=== PATIENT | female | born 1960 | race Caucasian/White ===

== ENCOUNTER 2017-08-30 12:10 | Emergency (ER) | payer BC, OTHER ==
--- NOTE | 2017-08-30 12:55 | EDM.PDOC ---
ED HPI GENERAL MEDICAL PROBLEM - General Chief Complaint: Lower Extremity Injury/Pain Stated Complaint: ALLOVER PAIN AND SHAKING Time Seen by Provider: 08/30/17 12:54 Source of Information: Reports: Patient History Limitations: Reports: No Limitations - History of Present Illness INITIAL COMMENTS - FREE TEXT/NARRATIVE: 57-year-old female presents to the ED due to severe pain in her right buttock and groin. Patient has cirrhosis of the liver and is terminally jaundice. She reports falling in March last year and injuring her right hip and for apparently a hamstring off of the posterior iliac crest. His took well over a month to slowly get so she could walk on her own volition with the aid of a walker. She was doing quite well up until 2 days ago when she developed sudden onset of worsening of the pain in this area without any recurrent fall. Pain is in the right groin as well as in the right buttock and radiates down the posterior aspect of her right leg. This caused her to have markedly disrupted sleep pattern and at present she aches all over. No noted fever or chills. Onset: Sudden Onset Date: 08/28/17 (Chronic pain right buttock area SI joint area but much worse over the last 48 hours.) Duration: Day(s): Location: Reports: Pelvis (Right buttock and groin.), Lower Extremity, Right ( Right hip groin area.) Quality: Reports: Ache, Burning Severity: Severe Improves with: Reports: Rest Worsens with: Reports: Movement (Requires help standing and getting up off the commode.) Context: Reports: Trauma (Remote trauma with injury to the right hip in March.). Denies: Activity ( She especially needs help getting out of a motor vehicle due to severe pain. She does have a walker at home and her sisters been around to help her out as well.), Exercise, Lifting, Sick Contact, Other Associated Symptoms: Reports: Other ( is chronically ill due to cirrhosis of liver. She is chronically jaundiced. 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) (She can't take aspirin acetaminophen or throat NSAIDs due to severe cirrhosis the liver.) Right Hip Pain Score (Numeric/FACES): 10 - Related Data Allergies Allergy/AdvReac Type Severity Reaction Status Date / Time No Known Allergies Allergy Verified 08/30/17 12:40 Home Meds: Home Meds Ampicillin [Principen] 500 mg PO Q6H 08/30/17 [History] Calcium Carbonate/Vitamin D3 [Calcium 600 + Vit D 400 Tablet] 1 each PO DAILY [History] Ciprofloxacin [IJD: Ciprofloxacin HCl] 500 mg PO DAILY 08/30/17 [History] FLUoxetine HCl [Prozac] 40 mg PO DAILY 08/30/17 [History] HYDROmorphone [Dilaudid] 1 mg PO Q6H PRN #12 tab 08/30/17 [Rx] Insulin Aspart [Novolog] 4 - 15 unit SQ QID 08/30/17 [History] Insulin Detemir [Levemir Flextouch] 20 unit SQ BEDTIME 08/30/17 [History] Lactulose 45 ml PO QID 08/30/17 [History] Lidocaine 5% [Lidoderm 5%] 1 patch TOP DAILY 08/30/17 [History] Magnesium Oxide 400 mg PO DAILY 08/30/17 [History] Metoclopramide HCl [Reglan] 10 mg PO QID 08/30/17 [History] Ondansetron 4 mg PO Q6H PRN 08/30/17 [History] Pantoprazole [ProTONIX] 40 mg PO BID 08/30/17 [History] Rifaximin [Xifaxan] 550 mg PO BID 08/30/17 [History] Zinc Sulfate [Zincate] 220 mg PO DAILY 08/30/17 [History] predniSONE [Deltasone] 20 mg PO ASDIRECTED #18 tablet 08/30/17 [Rx] Past Medical History Gastrointestinal History: Reports: Cirrhosis, Jaundice (Terminal cirrhosis of the liver.) Endocrine/Metabolic History: Reports: Diabetes, Type II - Past Surgical History GI Surgical History: Reports: Cholecystectomy Social & Family History - Tobacco Use Smoking Status *Q: Never Smoker - Caffeine Use Caffeine Use: Reports: None - Recreational Drug Use Recreational Drug Use: No - Living Situation & Occupation Living situation: Reports: Occupation: Disabled Review of Systems - Review of Systems Review Of Systems: See Below Constitutional: Reports: No Symptoms Eyes: Reports: Other (Does have scleral icterus bilaterally.) Mouth/Throat: Reports: Other Respiratory: Reports: Shortness of Breath (Shortness of breath on minimal exertion.) Cardiovascular: Reports: Edema GI/Abdominal: Reports: Abdominal Pain. Denies: Bloody Stool (Some abdominal pain right upper quadrant.), Constipation, Nausea, Vomiting Musculoskeletal: Reports: Other (Severe pain right buttock SI joint distribution in right groin.) Skin: Reports: Pruritis, Other (Generalized pruritus generalized jaundice.) Neurological: Reports: Dizziness, Difficulty Walking (Severe difficulty walking with aid of a walker and sometimes her sister help her so that she doesn't fall) , Weakness. Denies: Headache, Numbness, Syncope, Tingling Psychiatric: Reports: Depression ED EXAM, GENERAL - Physical Exam Exam: See Below Exam Limited By: Other General Appearance: Cachetic (Appears very tired and drowsy. She appears chronically ill. Cachectic in appearance with scleral icterus and obvious jaundice.) Eye Exam: Bilateral Eye: PERRL, Other (Bilateral scleral icterus.) Throat/Mouth: Other (Dentition is in very poor condition.). No: Normal Teeth Head: Atraumatic, Normocephalic Neck: Normal Inspection Respiratory/Chest: Lungs Clear, Normal Breath Sounds, No Accessory Muscle Use Cardiovascular: Normal Peripheral Pulses, No Gallop, No Murmur, No Rub, Tachycardia (Resting tachycardia of 1 10/m.) Peripheral Pulses: 1+: Posterior Tibial (L), Posterior Tibial (R), Dorsalis Pedis (L), Dorsalis Pedis (R) GI/Abdominal: Tender (Right upper quadrant of the abdomen and distal based of her liver. Abdomen is distended due to ascites.), Other Back Exam: Other (Some pain at L5-S1 facet joints bilaterally worse on the right as compared to the left marked severe pain on palpation of the superior two thirds of the right sacroiliac joint.) Extremities: Other (Examination of her extremities shows generalized muscle atrophy. I'm able to flex the left hip and internally actually rotated without making any worsening of the pain on the right side. Similarly I was able to lift the right leg and internally externally rotated with only minimal discomfort on internal rotation. Most the pain appears to be coming from the sacroiliac joint. There is no pain on palpation of the greater trochanteric versus bilaterally.) Neurological: Alert, Oriented, CN II-XII Intact, Normal Cognition, Other ( Lethargic.) Psychiatric: Anxious Skin Exam: Warm, Dry, Jaundice (Diffusely jaundiced.) Course - Vital Signs Last Recorded V/S: Last Vital Signs Temp 37.5 C 08/30/17 12:38 Pulse 109 H 08/30/17 12:38 Resp 16 08/30/17 12:38 BP 154/75 H 08/30/17 12:38 Pulse Ox 100 08/30/17 12:38 - Orders/Labs/Meds Orders: Active Orders 24 hr Category Date Time Status Pelvis 1V or 2V [CR] Stat Exams 08/30/17 13:01 Taken Meds: Medications Discontinued Medications Generic Name Dose Route Start Last Admin Trade Name Santos PRN Reason Stop Dose Admin Hydromorphone HCl 1 mg 08/30/17 13:01 Dilaudid IM 08/30/17 13:02 ONETIME ONE Hydromorphone HCl 1 mg 08/30/17 13:06 08/30/17 13:18 Dilaudid IM 08/30/17 13:07 1 mg ONETIME ONE Administration Metoclopramide HCl 5 mg 08/30/17 13:01 08/30/17 13:18 Reglan IM 08/30/17 13:02 5 mg ONETIME ONE Administration - Radiology Interpretation Free Text/Narrative:: 57-year-old female with known terminal cirrhosis of the liver presents to the ED due to severe pain in her right buttock and hip area. She fell in March and injured this area and apparently it was at that time did not reveal any fractures. She was treated with a walker and time and she slowly got better. With no injuries reoccurring she developed acute severe pain in the right buttock and hip area 2 days ago to the point that she can barely get up from a seated position. She requires help to get up and she requires a lot of help to getting out of the vehicle. On examination she appears to have a severe right- sided sacroiliitis. He does not take NSAIDs or acetaminophen due to severe cirrhosis of the liver. Plan I will give her a shot of Dilaudid 1 mg with Reglan 5 mg IM for acute pain relief. X-ray of her pelvis will be obtained so I can see both hips and SI joints. - Re-Assessments/Exams Free Text/Narrative Re-Assessment/Exam: 08/30/17 13:52 x-ray of the pelvis including both hips is within normal limits there is no significant arthritis in her hips at all. Only a deviation of the coccyx to the right side. I have no x-rays to compare to to indicate whether or not this occurred from her fall fractured her tailbone. Joint appears to be within normal limits. Plan will be to treat her with pain medication as needed Dilaudid 1 mg tablet every 6 hours as needed for the next few days. I'm going to start her on prednisone 20 mg twice daily for 6 days then 1 tablet in the morning only for another 6 days to reduce the inflammation in the SI joint. She cannot take anti-inflammatories. Departure - Departure Time of Disposition: 13:53 Disposition: Home, Self-Care 01 Condition: Fair Clinical Impression: Sacroiliitis - Discharge Information Prescriptions: HYDROmorphone [Dilaudid] 1 mg PO Q6H PRN #12 tab PRN Reason: Pain relief predniSONE [Deltasone] 20 mg PO ASDIRECTED #18 tablet Referrals: Alyssa Lloyd MD [Primary Care Provider] - Forms: ED Department Discharge Additional Instructions: Evaluation the emergency room today in regards to severe pain right buttock and hip area that started 2 days ago. Examination reveals marked inflammation coming from the right sacroiliac joint. X-ray of the pelvis was performed and reveals that there is no arthritis in your hip joints. The true hips are within normal limits there are no fractures in the pelvis. It is noted that you have a deviated tailbone to the right side which indicates a previous fracture of the tailbone or coccyx. I have no x-rays to compare to 2 indicating whether or not this occurred from her fall in March. At any rate treatment is to be anti- inflammatory Deltasone 20 mg in the morning and one with supper daily for 6 days then one of the morning only for another 6 days. Of note the steroid is to reduce pain and inflammation in the SI joint. To take with cirrhosis of the liver. It may elevate her blood sugars transiently while on the medication but they will come back to normal after you're done the medication. Pain relief is to be Dilaudid 2 mg tablets one half tablet every 6 hours needed for pain relief. The Deltasone is usually starts to work fairly well in 2 days time. For this will reduce her pain substantially. If not markedly improved in 10-12 days time than the SI joint could be injected with steroid to improve your pain. Follow-up with your personal doctor in this regard. - My Orders Last 24 Hours: My Active Orders 08/30/17 13:01 Pelvis 1V or 2V [CR] Stat - Assessment/Plan Last 24 Hours: My Active Orders 08/30/17 13:01 Pelvis 1V or 2V [CR] Stat
[2017-08-30] MEDS ORDERED: Metoclopramide 10 MG/2 ML SDV IM ONE (13:01)
[2017-08-30] MEDS ORDERED: HYDROmorphone 1 MG/ML Syringe IM ONE (13:01)
[2017-08-30] MEDS ORDERED: HYDROmorphone 0.5 MG/0.5 ML SYRINGE IM ONE (13:06)
--- NOTE | 2017-08-31 05:44 | CR ---
Pelvis: AP view of the pelvis was obtained. Joint spaces within both hips are maintained. Sacroiliac joints appear within normal limits. No fracture or other bony abnormality is seen. Phleboliths are seen within the pelvis. Vascular calcification is seen. Impression: 1. Incidental findings. Nothing acute is seen. Diagnostic code #2
== END 2017-08-30 14:25 | disposition home or self-care (01) ==
LOC: JD.ED 12:10
DX: M46.1 Sacroiliitis, not elsewhere classified (principal); E11.9 Type 2 diabetes mellitus without complications; Z79.899 Other long term (current) drug therapy; Z79.4 Long term (current) use of insulin
CPT/HCPCS: 72170; 96372; 99284; J1170; J2765; 99283

== ENCOUNTER 2017-09-06 23:27 | Emergency (ER) | payer OTHER ==
[2017-09-07] MEDS ORDERED: Ondansetron 4 MG/2 ML SDV IVPUSH ONE (00:28)
[2017-09-07] MEDS ORDERED: HYDROmorphone 0.5 MG/0.5 ML SYRINGE IVPUSH STA (00:29)
[2017-09-07] MEDS ORDERED: Sodium Chloride 0.9% 1,000 ML IV SCH (00:30)
--- NOTE | 2017-09-07 01:35 | EDM.PDOC ---
ED HPI GENERAL MEDICAL PROBLEM - General Chief Complaint: Abdominal Pain Stated Complaint: SOB AND CHEST PAIN VOMMITING GASTRO TESTING TODAY Time Seen by Provider: 09/06/17 23:41 Source of Information: Reports: Patient, Family (Sister) History Limitations: Reports: Physical Impairment (Majority of history provided by the patient's sister) - History of Present Illness INITIAL COMMENTS - FREE TEXT/NARRATIVE: The patient has a history of alcoholic cirrhosis, diagnosed about a year ago, according to the patient's sister. Medical records indicate that the patient was hospitalized at [facility] between 08/15/2017 and 08/22/2017, apparently for cirrhosis, although exactly what was done is not clear. The patient is currently on ciprofloxacin and oral ampicillin, likely prescribed from that visit. The patient was then seen in this ED on 08/30/2017 for buttock pain, after falling. She was found to have right sacroiliitis and a (likely) old coccygeal fracture. The patient underwent a MRI of her abdomen, as well as a gastric emptying study , at [facility], earlier today. She states that on her drive home around 18:00 tonight, she developed nausea, vomiting, watery diarrhea, and lower abdominal pain. No fever, and no urinary symptoms. The patient states that she has Zofran, but was unable to keep it, or any of her other medications, down because of her vomiting. The patient had similar symptoms in March 2017. She was found to have ascites and peritonitis. Although the patient has recently been at [facility], the majority of her prior GI evaluation and treatment has been at [facility]. The patient's Wind Turbine Machinist is at the [facility]. He acts as her PCP. Lower Abdomen Pain Score (Numeric/FACES): 10 - Related Data Allergies Allergy/AdvReac Type Severity Reaction Status Date / Time No Known Allergies Allergy Verified 09/06/17 23:42 Home Meds: Home Meds Ampicillin [Principen] 500 mg PO Q6H 08/30/17 [History] Calcium Carbonate/Vitamin D3 [Calcium 600 + Vit D 400 Tablet] 1 each PO DAILY [History] Ciprofloxacin [IJD: Ciprofloxacin HCl] 500 mg PO DAILY 08/30/17 [History] FLUoxetine HCl [Prozac] 40 mg PO DAILY 08/30/17 [History] HYDROmorphone [Dilaudid] 1 mg PO Q6H PRN #12 tab 08/30/17 [Rx] Insulin Aspart [Novolog] 4 - 15 unit SQ QID 08/30/17 [History] Insulin Detemir [Levemir Flextouch] 20 unit SQ BEDTIME 08/30/17 [History] Lactulose 45 ml PO QID 08/30/17 [History] Lidocaine 5% [Lidoderm 5%] 1 patch TOP DAILY 08/30/17 [History] Magnesium Oxide 400 mg PO DAILY 08/30/17 [History] Metoclopramide HCl [Reglan] 10 mg PO QID 08/30/17 [History] Ondansetron 4 mg PO Q6H PRN 08/30/17 [History] Pantoprazole [ProTONIX] 40 mg PO BID 08/30/17 [History] Rifaximin [Xifaxan] 550 mg PO BID 08/30/17 [History] Zinc Sulfate [Zincate] 220 mg PO DAILY 08/30/17 [History] predniSONE [Deltasone] 20 mg PO ASDIRECTED #18 tablet 08/30/17 [Rx] Past Medical History Gastrointestinal History: Reports: Cirrhosis (alcoholic), Jaundice, Other (See Below) (History of portal hypertension and ascites) Neurological History: Reports: Other (See Below) (History of hepatic encephalopathy) Psychiatric History: Reports: Addiction (alcohol), Depression Endocrine/Metabolic History: Reports: Diabetes, Type II - Past Surgical History GI Surgical History: Reports: Cholecystectomy Musculoskeletal Surgical History: Reports: ORIF (right wrist) Social & Family History - Family History Family Medical History: Noncontributory - Tobacco Use Smoking Status *Q: Never Smoker Second Hand Smoke Exposure: No - Caffeine Use Caffeine Use: Reports: Coffee - Alcohol Use Alcohol Use History: Yes Date/Time of Last Drink Comment: Last drink in Jun 2017 - Recreational Drug Use Recreational Drug Use: Yes Drug Use in Last 12 Months: No Recreational Drug Type: Reports: Marijuana/Hashish (on occasion) - Living Situation & Occupation Living situation: Reports: , with Family (Sister) Occupation: Disabled ED ROS GENERAL - Review of Systems Review Of Systems: ROS reveals no pertinent complaints other than HPI. ED EXAM, GI/ABD - Physical Exam Exam: See Below Exam Limited By: No Limitations General Appearance: Alert, WD/WN, Mild Distress Eyes: Bilateral: Normal Appearance (Scleral icterus), EOMI Ears: Normal External Exam, Hearing Grossly Normal Nose: Normal Inspection, No Blood Throat/Mouth: Normal Inspection, Normal Lips, Normal Voice, No Airway Compromise Head: Atraumatic, Normocephalic Neck: Normal Inspection, Full Range of Motion Respiratory/Chest: No Respiratory Distress, Lungs Clear, Normal Breath Sounds, No Accessory Muscle Use Cardiovascular: Normal Peripheral Pulses, Regular Rate, Rhythm, No Gallop, No JVD, No Rub, Systolic Murmur (Flow murmur, heard across precordium) GI/Abdominal Exam: Normal Bowel Sounds, Soft, Non-Tender (including the lower abdomen), No Organomegaly, No Distention, No Abnormal Bruit, No Mass (Female) Exam: Deferred Rectal (Female) Exam: Deferred Back Exam: Normal Inspection, Full Range of Motion, NT Extremities: Normal Inspection, Normal Range of Motion, Normal Capillary Refill , Other (3+ pretibial pitting edema bilaterally) Neurological: Alert, Oriented, Normal Cognition, No Motor/Sensory Deficits Skin Exam: Warm, Dry, Intact, Normal Color, No Rash Course - Vital Signs Last Recorded V/S: Last Vital Signs Temp 37.1 C 09/06/17 23:42 Pulse 101 H 09/06/17 23:42 Resp 22 H 09/06/17 23:42 BP 171/82 H 09/06/17 23:42 Pulse Ox 100 09/06/17 23:42 - Orders/Labs/Meds Orders: Active Orders 24 hr Category Date Time Status CULTURE STOOL + SHIGATOX [RM] Stat Lab 09/07/17 00:55 Ordered NOROVIRUS, RT-PCR Stat Lab 09/07/17 00:55 Received ROTAVIRUS DIRECT ANTIGEN STOOL [OP] Stat Lab 09/07/17 00:55 COMP UA W/MICROSCOPIC [URIN] Stat Lab 09/07/17 01:50 Ordered WBC, STOOL [OP] Stat Lab 09/07/17 00:55 COMP Sodium Chloride 0.9% [Normal Saline] 1,000 ml Med 09/07/17 00:30 Active IV ASDIRECTED Medication Orders Sodium Chloride (Normal Saline) 1,000 mls @ 100 mls/hr IV ASDIRECTED GUILHERME Last Admin: 09/07/17 00:55 Dose: 100 mls/hr Labs: Laboratory Tests 09/07/17 09/07/17 09/07/17 Range/Units 00:32 00:32 00:55 WBC 3.12 L (3.98-10.04) K/mm3 RBC 3.29 L (3.98-5.22) M/mm3 Hgb 9.7 L (11.2-15.7) gm/L Hct 28.0 L (34.1-44.9) % MCV 85.1 (79.4-94.8) fl MCH 29.5 (25.6-32.2) pg MCHC 34.6 (32.2-35.5) g/dl RDW Std Deviation 46.1 (36.4-46.3) fL Plt Count 57 L (182-369) K/mm3 MPV 9.6 (9.4-12.3) fl Neutrophils % (Manual) 83 H (40-60) % Band Neutrophils % 0 (0-10) % Lymphocytes % (Manual) 8 L (20-40) % Atypical Lymphs % 0 % Monocytes % (Manual) 9 (2-10) % Eosinophils % (Manual) 0 L (0.7-5.8) % Basophils % (Manual) 0 L (0.1-1.2) Platelet Estimate Marked dec Plt Morphology Comment Normal Poikilocytosis 2+ moderate Anisocytosis 1+ slight Microcytosis 1+ slight Macrocytosis 1+ slight Tear Drop Cells 1+ slight Ovalocytes 1+ slight Schistocytes 1+ slight RBC Morph Comment Abnormal Sodium 126 L (136-145) mEq/L Potassium 3.9 (3.5-5.1) mEq/L Chloride 90 L (98-107) mEq/L Carbon Dioxide 19 L (21-32) mEq/L Anion Gap 20.9 H (5-15) BUN 15 (7-18) mg/dL Creatinine 1.5 H (0.55-1.02) mg/dL Est Cr Clr Drug Dosing 30.08 mL/min Estimated GFR (MDRD) 36 (>60) mL/min BUN/Creatinine Ratio 10.0 L (14-18) Glucose 363 H (74-106) mg/dL Calcium 9.5 (8.5-10.1) mg/dL Total Bilirubin 6.8 H (0.2-1.0) mg/dL AST 57 H (15-37) U/L ALT 48 (14-59) U/L Alkaline Phosphatase 109 (46-116) U/L Total Protein 7.0 (6.4-8.2) g/dl Albumin 3.7 (3.4-5.0) g/dl Globulin 3.3 gm/dL Albumin/Globulin Ratio 1.1 (1-2) Lipase 425 H (73-393) U/L Urine Color (Yellow) Urine Appearance (Clear) Urine pH (5.0-8.0) Ur Specific [place] (1.005-1.030) Urine Protein (Negative) Urine Glucose (UA) (Negative) Urine Ketones (Negative) Urine Occult Blood (Negative) Urine Nitrite (Negative) Urine Bilirubin (Negative) Urine Urobilinogen (0.2-1.0) Ur Leukocyte Esterase (Negative) Urine RBC (0-5) /hpf Urine WBC (0-5) /hpf Ur Epithelial Cells (0-5) /hpf Urine Bacteria (FEW) /hpf Hyaline Casts (0-5) /lpf Waxy Casts (0-5) /lpf Urine Mucus (FEW) /hpf C.difficile [id number] Presumptive negative C. difficile Tox (PCR) Negative 09/07/17 Range/Units 01:50 WBC (3.98-10.04) K/mm3 RBC (3.98-5.22) M/mm3 Hgb (11.2-15.7) gm/L Hct (34.1-44.9) % MCV (79.4-94.8) fl MCH (25.6-32.2) pg MCHC (32.2-35.5) g/dl RDW Std Deviation (36.4-46.3) fL Plt Count (182-369) K/mm3 MPV (9.4-12.3) fl Neutrophils % (Manual) (40-60) % Band Neutrophils % (0-10) % Lymphocytes % (Manual) (20-40) % Atypical Lymphs % % Monocytes % (Manual) (2-10) % Eosinophils % (Manual) (0.7-5.8) % Basophils % (Manual) (0.1-1.2) Platelet Estimate Plt Morphology Comment Poikilocytosis Anisocytosis Microcytosis Macrocytosis Tear Drop Cells Ovalocytes Schistocytes RBC Morph Comment Sodium (136-145) mEq/L Potassium (3.5-5.1) mEq/L Chloride (98-107) mEq/L Carbon Dioxide (21-32) mEq/L Anion Gap (5-15) BUN (7-18) mg/dL Creatinine (0.55-1.02) mg/dL Est Cr Clr Drug Dosing mL/min Estimated GFR (MDRD) (>60) mL/min BUN/Creatinine Ratio (14-18) Glucose (74-106) mg/dL Calcium (8.5-10.1) mg/dL Total Bilirubin (0.2-1.0) mg/dL AST (15-37) U/L ALT (14-59) U/L Alkaline Phosphatase (46-116) U/L Total Protein (6.4-8.2) g/dl Albumin (3.4-5.0) g/dl Globulin gm/dL Albumin/Globulin Ratio (1-2) Lipase (73-393) U/L Urine Color Yellow (Yellow) Urine Appearance Clear (Clear) Urine pH 7.0 (5.0-8.0) Ur Specific [place] 1.015 (1.005-1.030) Urine Protein Negative (Negative) Urine Glucose (UA) 2+ H (Negative) Urine Ketones Negative (Negative) Urine Occult Blood Trace-intact H (Negative) Urine Nitrite Negative (Negative) Urine Bilirubin Negative (Negative) Urine Urobilinogen 0.2 (0.2-1.0) Ur Leukocyte Esterase Negative (Negative) Urine RBC 0-5 (0-5) /hpf Urine WBC 0-5 (0-5) /hpf Ur Epithelial Cells 0-5 (0-5) /hpf Urine Bacteria Not seen (FEW) /hpf Hyaline Casts 0-5 (0-5) /lpf Waxy Casts 0-5 (0-5) /lpf Urine Mucus Not seen (FEW) /hpf C.difficile [id number] C. difficile Tox (PCR) Meds: Medications Generic Name Dose Route Start Last Admin Trade Name Freq PRN Reason Stop Dose Admin Sodium Chloride 1,000 mls @ 100 mls/hr 09/07/17 00:30 09/07/17 00:55 Normal Saline IV 100 mls/hr ASDIRECTED GUILHERME Administration Discontinued Medications Generic Name Dose Route Start Last Admin Trade Name Freq PRN Reason Stop Dose Admin Hydromorphone HCl 1 mg 09/07/17 00:29 09/07/17 00:42 Dilaudid IVPUSH 09/07/17 00:30 1 mg ONETIME STA Administration Insulin Human Regular 10 unit 09/07/17 01:55 09/07/17 02:00 Humulin R SUBCUT 09/07/17 01:56 10 units ONETIME STA Administration Ketorolac Tromethamine 30 mg 09/07/17 01:54 09/07/17 02:01 Toradol IVPUSH 09/07/17 01:55 30 mg ONETIME STA Administration Ondansetron HCl 4 mg 09/07/17 00:28 09/07/17 00:44 Zofran IVPUSH 09/07/17 00:29 4 mg ONETIME ONE Administration - Re-Assessments/Exams Free Text/Narrative Re-Assessment/Exam: 09/07/17 01:34 The patient's CBC reveals pancytopenia, with a WBC of 3.12, H/H of 9.7/28.0, and platelets of 57,000. The patient CMP is remarkable for sodium of 126, which corrects to 129, given hyperglycemia of 363. Her bicarbonate is depressed at 19, with an anion gap of 20.9. Her BUN/Cr is 15/1.5. Her total bilirubin is elevated at 6.8. The patient's lipase is modestly elevated at 425. The only labs we have to compare are from 2013. 09/07/17 04:02 Case discussed with [facility] One Call at 03:35. Case then discussed with Dr. Munoz, [facility] [employer]urbine Machinist on-call, at 03:39. He feels that the pancytopenia is normal for a patient with cirrhosis. Most of the chemistry abnormalities are also common with cirrhosis, although he did not have access to the patient's prior labs for comparison. Dr. Robertson, [facility] Hospitalist, was then brought into the conversation at 03:52. He was able to review the patient's prior labs and found that the lab abnormalities presents today are essentially unchanged from prior lab abnormalities, with the exception that the total bilirubin is higher than usual. Dr. Munoz did not feel that the patient required transfer. He felt that the patient could be managed at this facility for gastroenteritis, with IV fluid and Zofran, although he advised against excess loperamide, as he did not want the patient to become constipated. If any questions or concerns, he could be contacted. Case then discussed with Dr. Morley at 03:59. He accepted the patient for admission. 09/07/17 04:11 The above was discussed with the patient, however, she states that she is feeling much better, and would like to go home. She states that she has an appointment to see her own Wind Turbine Machinist in [place] at 1:45 this afternoon. Departure - Departure Time of Disposition: 04:12 Disposition: Home, Self-Care 01 Condition: Fair Clinical Impression: Gastroenteritis, Alcoholic cirrhosis, Pancytopenia, Hyperglycemia due to type 2 diabetes mellitus - Discharge Information Referrals: PCP,Not In Area [Primary Care Provider] - Forms: ED Department Discharge Additional Instructions: You were seen in the emergency room for nausea, vomiting, watery diarrhea, and lower abdominal pain. Workup in the ER included blood work, a urinalysis, and several stool studies. Your workup found many laboratory abnormalities, but when compared to prior labs , they were normal for you. Vomiting and diarrhea = gastroenteritis. The cause of your gastroenteritis is not entirely clear, but is likely viral. You were offered admission to the hospital, that you declined. Continue to take your usual home medications as prescribed. Follow-up with your Wind Turbine Machinist in [place] at your previously scheduled appointment at 1:45 this afternoon. If any other problems, please do not hesitate to return to the ER. - My Orders Last 24 Hours: My Active Orders 09/07/17 00:30 Sodium Chloride 0.9% [Normal Saline] 1,000 ml IV ASDIRECTED 09/07/17 00:55 CULTURE STOOL + SHIGATOX [RM] Stat NOROVIRUS, RT-PCR Stat ROTAVIRUS DIRECT ANTIGEN STOOL [OP] Stat WBC, STOOL [OP] Stat 09/07/17 01:50 UA W/MICROSCOPIC [URIN] Stat - Assessment/Plan Last 24 Hours: My Active Orders 09/07/17 00:30 Sodium Chloride 0.9% [Normal Saline] 1,000 ml IV ASDIRECTED 09/07/17 00:55 CULTURE STOOL + SHIGATOX [RM] Stat NOROVIRUS, RT-PCR Stat ROTAVIRUS DIRECT ANTIGEN STOOL [OP] Stat WBC, STOOL [OP] Stat 09/07/17 01:50 UA W/MICROSCOPIC [URIN] Stat
[2017-09-07] MEDS ORDERED: Ketorolac 30 MG/ML SDV IVPUSH STA (01:54)
[2017-09-07] MEDS ORDERED: Insulin Regular, Human 100 Units/ML 3 ML Vial SUBCUT STA (01:55)
== END 2017-09-07 04:30 | disposition home or self-care (01) ==
LOC: JD.ED 23:27
DX: K70.30 Alcoholic cirrhosis of liver without ascites (principal); K52.9 Noninfective gastroenteritis and colitis, unspecified; D61.818 Other pancytopenia; E11.65 Type 2 diabetes mellitus with hyperglycemia; Z79.899 Other long term (current) drug therapy; Z79.4 Long term (current) use of insulin
CPT/HCPCS: 36415; 80053; 81001; 83690; 85025; 87046; 87425; 87493; 87798; 89055; 96361; 96372; 96374; 96375; 99284; J1170; J1815; J1885; J2405; J7040

== ENCOUNTER 2017-09-07 16:03 | Emergency (ER) | payer MEDICAID, OTHER ==
[2017-09-07] MEDS ORDERED: Sodium Chloride 0.9% 10 ML Syringe FLUSH PRN (16:32)
[2017-09-07] MEDS ORDERED: Metoclopramide 10 MG/2 ML SDV IVPUSH ONE (16:32)
[2017-09-07] MEDS ORDERED: Sodium Chloride 0.9% 1,000 ML IV STA (16:32)
[2017-09-07] MEDS ORDERED: fentaNYL 100 MCG/2 ML SDV IVPUSH ONE (16:34)
--- NOTE | 2017-09-07 17:30 | EDM.PDOC ---
ED HPI GENERAL MEDICAL PROBLEM - General Chief Complaint: Abdominal Pain Stated Complaint: VOMITING AND DIARRHEA NOT BETTER Time Seen by Provider: 09/07/17 16:16 Source of Information: Reports: Patient History Limitations: Reports: No Limitations - History of Present Illness INITIAL COMMENTS - FREE TEXT/NARRATIVE: The patient presents with nausea, vomiting, diarrhea and lower abdominal pain. This started last night about 6pm. She has a history of alcoholic cirrhosis of the liver with ascities. She was diagnosed 1 year ago. She was hospitalized at [facility] last month from 08/15/17 to 08/22/17. She is currently on cipro and ampicillin. She was seen here for buttock pain from a fall on 08/30/17. 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 The patient had an MRI of her abdomen as well as gastric emptying study at [facility] yesterday. On the way home she developed the symptoms. She had no fever, dysuria, chest pain, or shortness of breath. She tried zofran but that did not help. She was seen here in the ER early this morning. She was found to have pancytopenea, low sodium, elevated glucose and elevated lipase. Our provider call Dr Munoz the GI specialist legal paraprofessional at [facility] and the hospitalist. They were not concerned about her labs and recommend she stay here for treatment. Dr oMrley our hospitalist was contacted and he accepted the patient but she wanted to go home. She had a 1:45pm appointment with her GI doctor today. She could not go. She was to sick with nausea, vomiting, diarrhea and abdominal pain. Onset: Gradual Duration: Day(s): (Yesterday at 6pm) Location: Reports: Abdomen Quality: Reports: Sharp Severity: Moderate Improves with: Reports: None Worsens with: Reports: None Associated Symptoms: Reports: Nausea/Vomiting. Denies: Chest Pain, Cough, Fever /Chills, Headaches, Shortness of Breath Bilateral Lower Abdomen Pain Score (Numeric/FACES): 8 - Related Data Allergies Allergy/AdvReac Type Severity Reaction Status Date / Time No Known Allergies Allergy Verified 09/07/17 16:11 Home Meds: Home Meds Ampicillin [Principen] 500 mg PO Q6H 08/30/17 [History] Calcium Carbonate/Vitamin D3 [Calcium 600 + Vit D 400 Tablet] 1 each PO DAILY [History] Ciprofloxacin [IJD: Ciprofloxacin HCl] 500 mg PO DAILY 08/30/17 [History] FLUoxetine HCl [Prozac] 40 mg PO DAILY 08/30/17 [History] HYDROmorphone [Dilaudid] 1 mg PO Q6H PRN #12 tab 08/30/17 [Rx] Insulin Aspart [Novolog] 4 - 15 unit SQ QID 08/30/17 [History] Insulin Detemir [Levemir Flextouch] 20 unit SQ BEDTIME 08/30/17 [History] Lactulose 45 ml PO QID 08/30/17 [History] Lidocaine 5% [Lidoderm 5%] 1 patch TOP DAILY 08/30/17 [History] Magnesium Oxide 400 mg PO DAILY 08/30/17 [History] Metoclopramide HCl [Reglan] 10 mg PO QID 08/30/17 [History] Ondansetron 4 mg PO Q6H PRN 08/30/17 [History] Pantoprazole [ProTONIX] 40 mg PO BID 08/30/17 [History] Rifaximin [Xifaxan] 550 mg PO BID 08/30/17 [History] Zinc Sulfate [Zincate] 220 mg PO DAILY 08/30/17 [History] predniSONE [Deltasone] 20 mg PO ASDIRECTED #18 tablet 08/30/17 [Rx] Past Medical History Gastrointestinal History: Reports: Cirrhosis, Jaundice, Other (See Below) Neurological History: Reports: Other (See Below) (History of hepatic encephalopathy) Other Neuro History: hepatic encephalopathy Psychiatric History: Reports: Addiction, Depression Endocrine/Metabolic History: Reports: Diabetes, Type II - Past Surgical History GI Surgical History: Reports: Cholecystectomy Musculoskeletal Surgical History: Reports: ORIF Social & Family History - Family History Family Medical History: Noncontributory - Tobacco Use Smoking Status *Q: Never Smoker Second Hand Smoke Exposure: No - Caffeine Use Caffeine Use: Reports: Coffee - Recreational Drug Use Recreational Drug Use: Yes Drug Use in Last 12 Months: No Recreational Drug Type: Reports: Marijuana/Hashish (on occasion) - Living Situation & Occupation Living situation: Reports: , with Family (Sister) Occupation: Disabled ED ROS GENERAL - Review of Systems Review Of Systems: See Below Constitutional: Reports: No Symptoms HEENT: Reports: No Symptoms Respiratory: Reports: No Symptoms Cardiovascular: Reports: No Symptoms Endocrine: Reports: No Symptoms GI/Abdominal: Reports: Abdominal Pain, Diarrhea, Nausea, Vomiting : Reports: No Symptoms Musculoskeletal: Reports: No Symptoms Skin: Reports: No Symptoms Neurological: Reports: No Symptoms ED EXAM, GI/ABD - Physical Exam Exam: See Below Exam Limited By: No Limitations General Appearance: Alert, No Apparent Distress Eyes: Bilateral: Normal Appearance (Scleral ictirus) Ears: Normal External Exam Nose: Normal Inspection Head: Atraumatic, Normocephalic Neck: Normal Inspection Respiratory/Chest: No Respiratory Distress, Lungs Clear, Normal Breath Sounds Cardiovascular: Regular Rate, Rhythm, No Edema, No Murmur GI/Abdominal Exam: Soft, No Organomegaly, No Mass, Tender (moderate tenderness to the lower abdomen) Back Exam: Normal Inspection Extremities: Normal Inspection Course - Vital Signs Last Recorded V/S: Last Vital Signs Temp 98.7 F 09/07/17 16:09 Pulse 106 H 09/07/17 16:09 Resp 20 09/07/17 16:09 BP 149/71 H 09/07/17 16:09 Pulse Ox 99 09/07/17 16:09 - Orders/Labs/Meds Orders: Active Orders 24 hr Category Date Time Status Peripheral IV Care [RC] . DIRECTED Care 09/07/17 16:32 Active UA W/MICROSCOPIC [URIN] Stat Lab 09/07/17 16:32 Ordered Ertapenem [INVanz] Med 09/07/17 18:55 Once 1 gm IVPUSH ONETIME ONE Sodium Chloride 0.9% [Normal Saline] 1,000 ml Med 09/07/17 18:30 Active IV ASDIRECTED Sodium Chloride 0.9% [Saline Flush] Med 09/07/17 16:32 Active 10 ml FLUSH ASDIRECTED PRN ED Antiemetic Medication Reflex [OM.PC] Stat Oth 09/07/17 16:32 Ordered Peripheral IV Insertion Adult [OM.PC] Stat Oth 09/07/17 16:32 Ordered Medication Orders Sodium Chloride (Normal Saline) 1,000 mls @ 150 mls/hr IV ASDIRECTED GUILHERME Last Admin: 09/07/17 18:37 Dose: 150 mls/hr Sodium Chloride (Saline Flush) 10 ml FLUSH ASDIRECTED PRN PRN Reason: Keep Vein Open Last Admin: 09/07/17 16:52 Dose: 10 ml Labs: Laboratory Tests 09/07/17 09/07/17 Range/Units 16:50 16:50 WBC 3.39 L (3.98-10.04) K/mm3 RBC 3.22 L (3.98-5.22) M/mm3 Hgb 9.4 L (11.2-15.7) gm/L Hct 27.7 L (34.1-44.9) % MCV 86.0 (79.4-94.8) fl MCH 29.2 (25.6-32.2) pg MCHC 33.9 (32.2-35.5) g/dl RDW Std Deviation 48.8 H (36.4-46.3) fL Plt Count 48 L (182-369) K/mm3 MPV 8.6 L (9.4-12.3) fl Neut % (Auto) 74.1 H (34.0-71.1) % Lymph % (Auto) 9.7 L (19.3-51.7) % [place] % (Auto) 15.3 H (4.7-12.5) % Eos % (Auto) 0.6 L (0.7-5.8) Baso % (Auto) 0.0 L (0.1-1.2) % Neut # (Auto) 2.51 (1.56-6.13) K/mm3 Lymph # (Auto) 0.33 L (1.18-3.74) K/mm3 [place] # (Auto) 0.52 H (0.24-0.36) K/mm3 Eos # (Auto) 0.02 L (0.04-0.36) K/mm3 Baso # (Auto) 0.00 L (0.01-0.08) K/mm3 Manual Slide Review Abnormal smear Sodium 128 L (136-145) mEq/L Potassium 3.7 (3.5-5.1) mEq/L Chloride 93 L (98-107) mEq/L Carbon Dioxide 25 (21-32) mEq/L Anion Gap 13.7 (5-15) BUN 15 (7-18) mg/dL Creatinine 1.1 H (0.55-1.02) mg/dL Est Cr Clr Drug Dosing 41.02 mL/min Estimated GFR (MDRD) 51 (>60) mL/min BUN/Creatinine Ratio 13.6 L (14-18) Glucose 216 H (74-106) mg/dL Calcium 9.3 (8.5-10.1) mg/dL Total Bilirubin 6.7 H (0.2-1.0) mg/dL AST 52 H (15-37) U/L ALT 45 (14-59) U/L Alkaline Phosphatase 106 (46-116) U/L Total Protein 6.5 (6.4-8.2) g/dl Albumin 3.4 (3.4-5.0) g/dl Globulin 3.1 gm/dL Albumin/Globulin Ratio 1.1 (1-2) Lipase 562 H (73-393) U/L Meds: Medications Generic Name Dose Route Start Last Admin Trade Name Freq PRN Reason Stop Dose Admin Sodium Chloride 1,000 mls @ 150 mls/hr 09/07/17 18:30 09/07/17 18:37 Normal Saline IV 150 mls/hr ASDIRECTED GUILHERME Administration Sodium Chloride 10 ml 09/07/17 16:32 09/07/17 16:52 Saline Flush FLUSH 10 ml ASDIRECTED PRN Administration Keep Vein Open Discontinued Medications Generic Name Dose Route Start Last Admin Trade Name Freq PRN Reason Stop Dose Admin Fentanyl 100 mcg 09/07/17 16:34 09/07/17 16:51 Sublimaze IVPUSH 09/07/17 16:35 100 mcg ONETIME ONE Administration Sodium Chloride 1,000 mls @ 1,000 mls/hr 09/07/17 16:32 09/07/17 16:52 Normal Saline IV 09/07/17 17:31 1,000 mls/hr .BOLUS STA Administration Metoclopramide HCl 10 mg 09/07/17 16:32 09/07/17 16:51 Reglan IVPUSH 09/07/17 16:33 10 mg ONETIME ONE Administration - Re-Assessments/Exams Free Text/Narrative Re-Assessment/Exam: 09/07/17 17:32 I ordered an IV NS 1L bolus, reglan 10mg IV, dilaudid 0.5mg IV, labs, UA and a CT of her abdomen and pelvis. 09/07/17 18:56 Her WBC is 3.39. Her Hgb was low at 9.4. Her platelets are low at 48. Her Na was low at 128. Her creatinine was elevated at 1.1. Her glucose was 216. Her total bili was elevated at 6.7. Her AST was elevated at 52. Her CT shows cirrhosis with small amount of ascities and splenomegaly, small fluid containing umbilical hernia, appendix measures at the upper limits of normal limits in size at 9mm with no surrounding inflammatory change to definitely indicate appendicitis. Please correlate that patient has no symptoms to suggest very early appendicitis. If any further clinical questions remain, recommend repeat study tomorrow am. Slight parenchymal density within the right middle lobe incompletely included on this study. Differential includes mass, pneumonia, as well as scarring. I went back in and examined the patient and she has RLQ abdominal pain. I did give her some dilaudid for pain and her oxygen saturations dropped so I ordered some oxygen. I ordered some invanz 1 gram IV. I feel she needs to be admitted. I talked with my hospitalist and she feels the patient should go to [place]. I called [facility] in [place] and talked with Dr Lara the hospitalist legal paraprofessional and she agreed to the transfer. Departure - Departure Time of Disposition: 19:05 Disposition: DC/Tfer to Acute Hospital 02 Condition: Poor Clinical Impression: Abdominal pain, Pancytopenia, Hyponatremia Alcoholic cirrhosis Qualifiers: Ascites presence: with ascites Qualified Code(s): K70.31 - Alcoholic cirrhosis of liver with ascites Pancreatitis Qualifiers: Chronicity: acute Pancreatitis type: other Acute pancreatitis complication: no infection or necrosis Qualified Code(s): K85.80 - Other acute pancreatitis without necrosis or infection Appendicitis Qualifiers: Appendicitis type: acute appendicitis Acute appendicitis type: with localized peritonitis Qualified Code(s): K35.3 - Acute appendicitis with localized peritonitis - Discharge Information Referrals: PCP,Not In Area [Primary Care Provider] - Forms: ED Department Discharge - My Orders Last 24 Hours: My Active Orders 09/07/17 16:32 Peripheral IV Care [RC] . DIRECTED UA W/MICROSCOPIC [URIN] Stat Sodium Chloride 0.9% [Saline Flush] 10 ml FLUSH ASDIRECTED PRN ED Antiemetic Medication Reflex [OM.PC] Stat Peripheral IV Insertion Adult [OM.PC] Stat 09/07/17 18:30 Sodium Chloride 0.9% [Normal Saline] 1,000 ml IV ASDIRECTED 09/07/17 18:55 Ertapenem [INVanz] 1 gm IVPUSH ONETIME ONE - Assessment/Plan Last 24 Hours: My Active Orders 09/07/17 16:32 Peripheral IV Care [RC] . DIRECTED UA W/MICROSCOPIC [URIN] Stat Sodium Chloride 0.9% [Saline Flush] 10 ml FLUSH ASDIRECTED PRN ED Antiemetic Medication Reflex [OM.PC] Stat Peripheral IV Insertion Adult [OM.PC] Stat 09/07/17 18:30 Sodium Chloride 0.9% [Normal Saline] 1,000 ml IV ASDIRECTED 09/07/17 18:55 Ertapenem [INVanz] 1 gm IVPUSH ONETIME ONE
--- NOTE | 2017-09-07 17:43 | CT ---
CT abdomen and pelvis Technique: Multiple axial sections were obtained from above the dome of the diaphragm inferiorly through the pubic symphysis. Intravenous and oral contrast was not utilized. Comparison: Prior limited abdominal ultrasound of 08/06/13 is available. Findings: Visualized lung bases shows slight parenchymal change partially visualized within the right middle lobe. Visualized lung bases are otherwise clear. Liver is small and nodular in appearance compatible with a cyst cirrhosis. Spleen is enlarged with length of around 13 cm. Adrenal glands show no nodule. Surgical clips are seen from prior cholecystectomy. Kidneys show no abnormal calcifications or hydronephrosis. Pancreas shows no discrete abnormality. Aorta shows atherosclerotic change which continues into the iliac vessels without aneurysm. Appendix is seen and measures at the upper limits of normal at 9 mm but no inflammatory change is seen around the appendix. Minimal diverticulosis is seen within the sigmoid colon. Mild amount of ascites is identified within the abdomen around the liver and spleen with minimal fluid within the pelvis being seen. Haziness throughout the mesentery is seen and felt compatible with mesenteric congestion. Small umbilical hernia seen containing fluid. Bone window settings shows mild degenerative change within the spine. Impression: 1. Cirrhosis with small amount of ascites and splenomegaly. 2. Small fluid-containing umbilical hernia. 3. Appendix measures at the upper limits of normal limits in size at 9 mm with no surrounding inflammatory change to definitely indicate appendicitis. Please correlate that patient has no symptoms to suggest very early appendicitis. If any further clinical questions remain, recommend repeat study tomorrow a.m. 4. Slight parenchymal density within the right middle lobe incompletely included on this study. Differential includes mass, pneumonia as well as scarring. Diagnostic code #5
[2017-09-07] MEDS ORDERED: Sodium Chloride 0.9% 1,000 ML IV SCH (18:30)
[2017-09-07] MEDS ORDERED: Ertapenem 1 GM Vial IVPUSH ONE (18:55)
[2017-09-07] MEDS ORDERED: Ertapenem 1 GM in Sodium Chloride 0.9% 100 ML IV ONE (19:08)
== END 2017-09-07 19:30 ==
LOC: JD.ED 16:03
DX: K70.31 Alcoholic cirrhosis of liver with ascites (principal); K35.3 Acute appendicitis with localized peritonitis; K85.80 Other acute pancreatitis without necrosis or infection; D61.818 Other pancytopenia; E87.1 Hypo-osmolality and hyponatremia; E11.9 Type 2 diabetes mellitus without complications; Z79.899 Other long term (current) drug therapy; Z79.4 Long term (current) use of insulin
CPT/HCPCS: 36415; 74176; 80053; 83690; 85025; 96361; 96374; 96375; 99285; J1335; J2765; J3010; J7030; J7040; J7050

== ENCOUNTER 2017-09-28 07:34 | Emergency (ER) | payer MEDICAID ==
[2017-09-28] MEDS ORDERED: Sodium Chloride 0.9% 10 ML Syringe FLUSH PRN ×2 (07:41→09:27)
--- NOTE | 2017-09-28 07:49 | EDM.PDOC ---
ED HPI GENERAL MEDICAL PROBLEM - General Chief Complaint: Respiratory Problem Stated Complaint: [facility] Time Seen by Provider: 09/28/17 07:43 Source of Information: Reports: Patient, EMS History Limitations: Reports: No Limitations - History of Present Illness INITIAL COMMENTS - FREE TEXT/NARRATIVE: The patient presents with shortness of breath. This has been going on for a few days. She has no history of asthma or COPD. She does not smoke. She does have alcoholic cirrhosis of the liver with ascities. She has been retaining fluid lately. She has moderate edema to her legs. She was started on some lasix. She denies fever, chills, and cough but she is short of breath. She was 56% on room air when EMS arrived. She could speak in 1 word sentences. They gave her a breathing treatment and put her on oxygen. She can now speak in short phrases. Her oxygen saturations did come up to 69%. She said she is lightheaded when she stands up. She has a cast on her left arm. She fell on the ice months ago and fractured her elbow. She developed a wound on her arm and it would not heal. She just had surgery on it recently. Onset: Gradual Duration: Day(s): Severity: Severe Improves with: Reports: None Worsens with: Reports: None Associated Symptoms: Denies: Chest Pain, Cough Abdomen Pain Score (Numeric/FACES): 6 - Related Data Allergies Allergy/AdvReac Type Severity Reaction Status Date / Time No Known Allergies Allergy Verified 09/28/17 08:11 Home Meds: Home Meds FLUoxetine HCl [Prozac] 40 mg PO DAILY 08/30/17 [History] Insulin Aspart [Novolog] 4 - 15 unit SQ QID 08/30/17 [History] Insulin Detemir [Levemir Flextouch] 20 unit SQ BEDTIME 08/30/17 [History] Lactulose 45 ml PO QID 08/30/17 [History] Lidocaine 5% [Lidoderm 5%] 1 patch TOP DAILY PRN 08/30/17 [History] Magnesium Oxide 400 mg PO DAILY 08/30/17 [History] Metoclopramide HCl [Reglan] 10 mg PO QID 08/30/17 [History] Ondansetron 4 mg PO Q6H PRN 08/30/17 [History] Pantoprazole [ProTONIX] 40 mg PO BID 08/30/17 [History] Rifaximin [Xifaxan] 550 mg PO BID 08/30/17 [History] Zinc Sulfate [Zincate] 220 mg PO DAILY 08/30/17 [History] Calcium Carbonate/Vitamin D3 [Calcium 500 + Vit D Caplet] 2.5 tab PO DAILY 09/28 [History] Cholecalciferol (Vitamin D3) [Vitamin D3] 4,000 unit PO DAILY 09/28/17 [History] Cyclobenzaprine [Flexeril] 5 mg PO TID PRN 09/28/17 [History] Folic Acid 1 mg PO DAILY 09/28/17 [History] Furosemide [Lasix] 40 mg PO DAILY 09/28/17 [History] Gabapentin [Neurontin] 100 mg PO BID 09/28/17 [History] L.acidoph,Paracasei, B.lactis [Probiotic] 1 each PO DAILY 09/28/17 [History] Morphine Sulfate [Itzel] 20 mg PO DAILY 09/28/17 [History] [place]-3/DHA/Epa/Fish Oil [[place] 3 500 Softgel] 1,000 mg PO DAILY 09/28/17 [ History] Spironolactone [Aldactone] 100 mg PO DAILY 09/28/17 [History] Thiamine [Vitamin B-1] 100 mg PO DAILY 09/28/17 [History] Past Medical History Gastrointestinal History: Reports: Cirrhosis, Jaundice, Other (See Below) Neurological History: Reports: Other (See Below) (History of hepatic encephalopathy) Other Neuro History: hepatic encephalopathy Psychiatric History: Reports: Addiction, Depression Endocrine/Metabolic History: Reports: Diabetes, Type II - Past Surgical History GI Surgical History: Reports: Cholecystectomy Musculoskeletal Surgical History: Reports: ORIF Social & Family History - Family History Family Medical History: Noncontributory - Caffeine Use Caffeine Use: Reports: Coffee - Living Situation & Occupation Living situation: Reports: , with Family (Sister) Occupation: Disabled ED ROS GENERAL - Review of Systems Review Of Systems: See Below Constitutional: Reports: No Symptoms HEENT: Reports: No Symptoms Respiratory: Reports: Shortness of Breath Cardiovascular: Reports: Edema. Denies: Chest Pain Endocrine: Reports: No Symptoms GI/Abdominal: Reports: No Symptoms : Reports: No Symptoms ED EXAM, GENERAL - Physical Exam Exam: See Below Exam Limited By: No Limitations General Appearance: Alert, Moderate Distress Eye Exam: Bilateral Eye: Other (Scleral icterus) Ears: Normal External Exam Nose: Normal Inspection Head: Atraumatic, Normocephalic Neck: Normal Inspection Respiratory/Chest: Respiratory Distress (Moderate), Decreased Breath Sounds, Rhonchi Cardiovascular: Regular Rate, Rhythm, No Edema, No Murmur GI/Abdominal: Soft, Non-Tender, No Organomegaly, No Mass Back Exam: Normal Inspection Extremities: Normal Inspection Neurological: Alert, Oriented, No Motor/Sensory Deficits EKG INTERPRETATION EKG Date: 09/28/17 Time: 08:33 Rhythm: NSR Rate (Beats/Min): 97 [place]: Normal P-Wave: Present QRS: Normal ST-T: Normal QT: Normal Course - Vital Signs Last Recorded V/S: Last Vital Signs Temp 97.9 F 09/28/17 07:45 Pulse 103 H 09/28/17 07:45 Resp 36 H 09/28/17 07:45 BP 115/48 L 09/28/17 07:45 Pulse Ox 74 L 09/28/17 07:45 - Orders/Labs/Meds Orders: Active Orders 24 hr Category Date Time Status Cardiac Monitoring [RC] . DIRECTED Care 09/28/17 07:41 Active EKG Documentation Completion [RC] STAT Care 09/28/17 07:42 Active Oxygen Therapy [RC] PRN Care 09/28/17 07:41 Active Peripheral IV Care [RC] . DIRECTED Care 09/28/17 07:42 Active Sodium Chloride 0.9% [Normal Saline] 250 ml Med 09/28/17 09:30 Active IV ASDIRECTED Sodium Chloride 0.9% [Saline Flush] Med 09/28/17 07:41 Active 10 ml FLUSH ASDIRECTED PRN Sodium Chloride 0.9% [Saline Flush] Med 09/28/17 09:27 Active 10 ml FLUSH ONETIME PRN BiPAP [RESPCARE] Routine Oth 09/28/17 07:42 Active Peripheral IV Insertion Adult [OM.PC] Stat Oth 09/28/17 07:41 Ordered Medication Orders Sodium Chloride (Normal Saline) 250 mls @ 80 mls/hr IV ASDIRECTED GUILHERME Last Admin: 09/28/17 09:32 Dose: 80 mls/hr Sodium Chloride (Saline Flush) 10 ml FLUSH ASDIRECTED PRN PRN Reason: Keep Vein Open Last Admin: 09/28/17 08:20 Dose: 10 ml Sodium Chloride (Saline Flush) 10 ml FLUSH ONETIME PRN PRN Reason: IV FLUSH Last Admin: 09/28/17 09:32 Dose: 10 ml Labs: Laboratory Tests 09/28/17 09/28/17 09/28/17 Range/Units 08:20 08:30 08:30 WBC 11.07 H (3.98-10.04) K/mm3 RBC 3.59 L (3.98-5.22) M/mm3 Hgb 10.5 L (11.2-15.7) gm/L Hct 30.4 L (34.1-44.9) % MCV 84.7 (79.4-94.8) fl MCH 29.2 (25.6-32.2) pg MCHC 34.5 (32.2-35.5) g/dl RDW Std Deviation 45.3 (36.4-46.3) fL Plt Count 70 L (182-369) K/mm3 MPV 9.4 (9.4-12.3) fl Neut % (Auto) 90.4 H (34.0-71.1) % Lymph % (Auto) 2.4 L (19.3-51.7) % [place] % (Auto) 6.7 (4.7-12.5) % Eos % (Auto) 0 L (0.7-5.8) Baso % (Auto) 0.2 (0.1-1.2) % Neut # (Auto) 10.01 H (1.56-6.13) K/mm3 Lymph # (Auto) 0.27 L (1.18-3.74) K/mm3 [place] # (Auto) 0.74 H (0.24-0.36) K/mm3 Eos # (Auto) 0.00 L (0.04-0.36) K/mm3 Baso # (Auto) 0.02 (0.01-0.08) K/mm3 Manual Slide Review Abnormal smear Puncture Site Rt radial ABG pH 7.46 H (7.35-7.45) ABG pCO2 26.8 L (35.0-45.0) mmHg ABG pO2 62.0 L (80.0-100.0) mmHg ABG HCO3 18.7 L (22.0-26.0) meq/L ABG O2 Saturation 90.5 L (96.0-97.0) % ABG Base Excess -3.8 L (-2-2.0) Bo Test Positive O2 Delivery Device Simple mask Oxygen Flow Rate 10.0 FiO2 0.00 L (21.00-100.00) % Sodium 132 L (136-145) mEq/L Potassium 3.5 (3.5-5.1) mEq/L Chloride 97 L (98-107) mEq/L Carbon Dioxide 22 (21-32) mEq/L Anion Gap 16.5 H (5-15) BUN 17 (7-18) mg/dL Creatinine 1.4 H (0.55-1.02) mg/dL Est Cr Clr Drug Dosing 32.23 mL/min Estimated GFR (MDRD) 39 (>60) mL/min BUN/Creatinine Ratio 12.1 L (14-18) Glucose 185 H (74-106) mg/dL Calcium 8.8 (8.5-10.1) mg/dL Total Bilirubin 4.0 H (0.2-1.0) mg/dL AST 94 H (15-37) U/L ALT 32 (14-59) U/L Alkaline Phosphatase 189 H (46-116) U/L Troponin I < 0.017 (0.00-0.056) ng/mL NT-Pro-B Natriuret Pep (0-125) pg/mL Total Protein 5.6 L (6.4-8.2) g/dl Albumin 2.4 L (3.4-5.0) g/dl Globulin 3.2 gm/dL Albumin/Globulin Ratio 0.8 L (1-2) 09/28/18 Range/Units 08:30 WBC (3.98-10.04) K/mm3 RBC (3.98-5.22) M/mm3 Hgb (11.2-15.7) gm/L Hct (34.1-44.9) % MCV (79.4-94.8) fl MCH (25.6-32.2) pg MCHC (32.2-35.5) g/dl RDW Std Deviation (36.4-46.3) fL Plt Count (182-369) K/mm3 MPV (9.4-12.3) fl Neut % (Auto) (34.0-71.1) % Lymph % (Auto) (19.3-51.7) % [place] % (Auto) (4.7-12.5) % Eos % (Auto) (0.7-5.8) Baso % (Auto) (0.1-1.2) % Neut # (Auto) (1.56-6.13) K/mm3 Lymph # (Auto) (1.18-3.74) K/mm3 [place] # (Auto) (0.24-0.36) K/mm3 Eos # (Auto) (0.04-0.36) K/mm3 Baso # (Auto) (0.01-0.08) K/mm3 Manual Slide Review Puncture Site ABG pH (7.35-7.45) ABG pCO2 (35.0-45.0) mmHg ABG pO2 (80.0-100.0) mmHg ABG HCO3 (22.0-26.0) meq/L ABG O2 Saturation (96.0-97.0) % ABG Base Excess (-2-2.0) Bo Test O2 Delivery Device Oxygen Flow Rate FiO2 (21.00-100.00) % Sodium (136-145) mEq/L Potassium (3.5-5.1) mEq/L Chloride (98-107) mEq/L Carbon Dioxide (21-32) mEq/L Anion Gap (5-15) BUN (7-18) mg/dL Creatinine (0.55-1.02) mg/dL Est Cr Clr Drug Dosing mL/min Estimated GFR (MDRD) (>60) mL/min BUN/Creatinine Ratio (14-18) Glucose (74-106) mg/dL Calcium (8.5-10.1) mg/dL Total Bilirubin (0.2-1.0) mg/dL AST (15-37) U/L ALT (14-59) U/L Alkaline Phosphatase (46-116) U/L Troponin I (0.00-0.056) ng/mL NT-Pro-B Natriuret Pep 491 H (0-125) pg/mL Total Protein (6.4-8.2) g/dl Albumin (3.4-5.0) g/dl Globulin gm/dL Albumin/Globulin Ratio (1-2) Meds: Medications Generic Name Dose Route Start Last Admin Trade Name Freq PRN Reason Stop Dose Admin Sodium Chloride 250 mls @ 80 mls/hr 09/28/17 09:30 09/28/17 09:32 Normal Saline IV 80 mls/hr ASDIRECTED GUILHERME Administration Sodium Chloride 10 ml 09/28/17 07:41 09/28/17 08:20 Saline Flush FLUSH 10 ml ASDIRECTED PRN Administration Keep Vein Open Sodium Chloride 10 ml 09/28/17 09:27 09/28/17 09:32 Saline Flush FLUSH 10 ml ONETIME PRN Administration IV FLUSH Discontinued Medications Generic Name Dose Route Start Last Admin Trade Name Freq PRN Reason Stop Dose Admin Furosemide 80 mg 09/28/17 07:52 09/28/17 08:20 Lasix IVPUSH 09/28/17 07:53 80 mg NOW ONE Administration Furosemide Confirm 09/28/17 08:23 09/28/17 09:33 Lasix Administered 09/28/17 08:24 Not Given Dose 40 mg .ROUTE .STK-MED ONE Iopamidol 100 ml 09/28/17 09:27 09/28/17 09:32 Isovue-370 (76%) IVPUSH 09/28/17 09:28 80 ml ONETIME ONE Administration - Re-Assessments/Exams Free Text/Narrative Re-Assessment/Exam: 09/28/17 07:51 I ordered an IV saline lock, EKG, CXR, labs, BiPAP, and lasix 80mg IV. 09/28/17 07:52 09/28/17 11:06 Her CXR shows pulmonary edema with calcified lymph nodes. Her EKG shows NSR with nothing acute. Her WBC was slightly elevated at 11.07. Her Hgb was low at 10.5. Her platelets were low at 70. Her pH was elevated at 7.46. Her pCO2 is low at 26.8. Her pO2 is low at 62. Her Na is low at 132. Her anion gap is elevated at 16.5. Her creatinine is elevated at 1.4. Her glucose is elevated at 185. Her AST is elevated at 94. Her troponin is normal. Her BNP is elevated at 491. I am concerned she may have a PE. I ordered a CT of her chest. The CT shows pulmonary arteries not optimally opacified but no findings of pulmonary embolism within the main or segmental branches. Ascites within the abdomen as well as findings of cirrhosis within the liver. Spleen is enlarged. Diffuse increased density throughout both lungs either representing diffuse pulmonary edema of diffuse infection. She has no fever or cough. I feel this is more pulmonary edema from CHF and ascities. She was maintaining her oxygen saturations on a simple mask but they are going down. I tried the BiPap and now she is doing better. I feel she needs to be admitted. I called Dr Morley and he felt she needed ICU here and we to not have any beds available and he also felt she is very complex patient for here. I called [facility] in [place] and they will be getting back with me. 09/28/17 11:23 Dr Mayfield from [facility] called me back and I will transfer her. Departure - Departure Time of Disposition: 11:25 Disposition: DC/Tfer to Acute Hospital 02 Condition: Serious Clinical Impression: Hypoxemia Pulmonary edema Qualifiers: Chronicity: acute Qualified Code(s): J81.0 - Acute pulmonary edema CHF (congestive heart failure) Qualifiers: Heart failure type: other Qualified Code(s): I50.9 - Heart failure, unspecified Cirrhosis Qualifiers: Hepatic cirrhosis type: alcoholic cirrhosis Ascites presence: with ascites Qualified Code(s): K70.31 - Alcoholic cirrhosis of liver with ascites Ascites Qualifiers: Ascites type: due to alcoholic cirrhosis Qualified Code(s): K70.31 - Alcoholic cirrhosis of liver with ascites - Discharge Information Referrals: PCP,Not In Area [Primary Care Provider] - Forms: ED Department Discharge - My Orders Last 24 Hours: My Active Orders 09/28/17 07:41 Cardiac Monitoring [RC] . DIRECTED Oxygen Therapy [RC] PRN Sodium Chloride 0.9% [Saline Flush] 10 ml FLUSH ASDIRECTED PRN Peripheral IV Insertion Adult [OM.PC] Stat 09/28/17 07:42 EKG Documentation Completion [RC] STAT Peripheral IV Care [RC] . DIRECTED BiPAP [RESPCARE] Routine 09/28/17 09:27 Sodium Chloride 0.9% [Saline Flush] 10 ml FLUSH ONETIME PRN 09/28/17 09:30 Sodium Chloride 0.9% [Normal Saline] 250 ml IV ASDIRECTED - Assessment/Plan Last 24 Hours: My Active Orders 09/28/17 07:41 Cardiac Monitoring [RC] . DIRECTED Oxygen Therapy [RC] PRN Sodium Chloride 0.9% [Saline Flush] 10 ml FLUSH ASDIRECTED PRN Peripheral IV Insertion Adult [OM.PC] Stat 09/28/17 07:42 EKG Documentation Completion [RC] STAT Peripheral IV Care [RC] . DIRECTED BiPAP [RESPCARE] Routine 09/28/17 09:27 Sodium Chloride 0.9% [Saline Flush] 10 ml FLUSH ONETIME PRN 09/28/17 09:30 Sodium Chloride 0.9% [Normal Saline] 250 ml IV ASDIRECTED
[2017-09-28] MEDS ORDERED: Furosemide 40 MG/4 ML VIAL IVPUSH ONE (07:52)
[2017-09-28] MEDS ORDERED: Furosemide 40 MG/4 ML VIAL ONE (08:23)
[2017-09-28] MEDS ORDERED: Iopamidol 755 Mg/ML 100 ML Bottle IVPUSH ONE (09:27)
[2017-09-28] MEDS ORDERED: Sodium Chloride 0.9% 250 ML IV SCH (09:30)
--- NOTE | 2017-09-28 09:53 | CT ---
CT chest Technique: Multiple axial sections were obtained through the chest from above the lung apices inferiorly through the lung bases. Intravenous contrast was utilized. Comparison: Prior CT abdomen and pelvis exam of 09/07/17 and chest x-ray performed earlier today (08:53 AM). Findings: Pulmonary arteries are not optimally opacified. No larger pulmonary emboli are seen within the main or segmental branches. Subsegmental pulmonary emboli could easily be missed. Numerous calcified lymph nodes are seen throughout the mediastinum and hilar regions. Ascites is identified within the upper abdomen. Liver has the appearance of cirrhosis. Spleen is enlarged. Surgical clips are seen from prior cholecystectomy. Diffuse body wall edema is identified. Diffuse increased density seen throughout both sides of the chest. Differential includes diffuse pulmonary edema as well as infection. Heart is slightly enlarged. Bone window settings were reviewed which shows no acute osseous abnormality. Impression: 1. Pulmonary arteries not optimally opacified but no findings of pulmonary embolism within the main or segmental branches. 2. Ascites within the abdomen as well as findings of cirrhosis within the liver. Spleen is enlarged. 3. Diffuse increased density throughout both lungs either representing diffuse pulmonary edema or diffuse infection. Diagnostic code #5
--- NOTE | 2017-09-28 10:43 | CR ---
Chest: Portable view of the chest was obtained. Comparison: No prior chest x-ray. Multiple calcified lymph nodes are seen within the mediastinum and hilar regions. Diffuse increased density is seen on both sides of the chest raising the possibility of pulmonary vascular congestion/pulmonary edema. Findings could also represent diffuse infection. Heart size appears within normal limits for portable technique. Mild tortuosity of the thoracic aorta is seen. Bony structures are grossly intact. Impression: 1. Numerous calcified lymph nodes as noted above. 2. Diffuse increased density within both sides of the chest with differential as described above. Diagnostic code #3
== END 2017-09-28 12:10 ==
LOC: JD.ED 07:34
DX: I50.9 Heart failure, unspecified (principal); J81.0 Acute pulmonary edema; K70.31 Alcoholic cirrhosis of liver with ascites; R09.02 Hypoxemia; E11.9 Type 2 diabetes mellitus without complications; Z79.899 Other long term (current) drug therapy; Z79.4 Long term (current) use of insulin
CPT/HCPCS: 36415; 36600; 71045; 71275; 80053; 82803; 83880; 84484; 85025; 93005; 94660; 96374; 99285; J1940; J7050; Q9967; 93010; 99284